=== PATIENT | male | born 1970 | race Hispanic/Latino ===

== ENCOUNTER → 2023-05-23 | Outpatient (CLI) | payer MEDICAID, OTHER ==
[~2023-05-23] MED LIST: IOHEXOL 350 MG/ML 100ML INFUS..BTL IV ONE; IOHEXOL-350 50ML VIAL IV ONE
== END | disposition home or self-care (01) ==
LOC: RAH 09:17
PROVIDERS: ATTEND Student in an Organized Health Care Education/Training Program
DX: I73.9 Peripheral vascular disease, unspecified (principal); I70.90 Unspecified atherosclerosis
CPT/HCPCS: 75635; Q9967 ×2

== ENCOUNTER 2023-12-17 06:53 | Day surgery (SDC) | payer OTHER, MEDICAID ==
[2023-12-17] VITALS (14 sets, daily range): BP systolic 89–132; BP diastolic 53–74; PULSE 80–94; RESP 14–24
[~2023-12-17] VITALS: Ht 172.7 cm; Wt 67.1 kg
[~2023-12-17 06:53] MED LIST changes: +ASCO500T20 PO; +CARB15DR2 OS; +CYAN500L3 SL; +DIVA125T2 PO; +HYDR-3422 PO; -IOHEXOL 350 MG/ML 100ML INFUS..BTL IV ONE; -IOHEXOL-350 50ML VIAL IV ONE; +LORA0.5T83 PO; +MELA5TAB20 PO; +MULT-1203 PO; +ONDA22I IM; +SERT25TA PO; +THIA100V3 IJ; +TRAZ-185 PO; +ZINC50TA64 PO
[2023-12-17] MEDS ORDERED: MELA1TAB16 PO (09:28)
[2023-12-17] MEDS ORDERED: ONDA-104 PO (09:29)
[2023-12-17] MEDS: 0.9%NACL 1000ML 1,000 ML IV ONE (09:50)
[2023-12-17] MEDS ORDERED: PROPOFOL 10 MG/ML 20ML VIAL IV ONE (10:38)
[2023-12-17] MEDS ORDERED: CEFAZOLIN SODIUM 1 GM VIAL ONE (10:42)
[2023-12-17] MEDS: IPRATROPIUM/ALBUTEROL SULFATE 3 ML SOLUTION IH ONE (11:29)
[2023-12-17] MEDS ORDERED: IPRATROPIUM/ALBUTEROL SULFATE 3 ML SOLUTION IH ONE (11:30)
== END 2023-12-17 12:34 ==
LOC: DAH 06:53
PROVIDERS: ATTEND Internal Medicine
DX: R13.10 Dysphagia, unspecified (principal); R62.7 Adult failure to thrive; I10 Essential (primary) hypertension; F41.9 Anxiety disorder, unspecified; F32.A Depression, unspecified; F02.80 Dementia in other diseases classified elsewhere, unspecified severity, without behavioral disturbance, psychotic disturbance, mood disturbance, and anxiety; Z86.73 Personal history of transient ischemic attack (TIA), and cerebral infarction without residual deficits
CPT/HCPCS: 43246; 94640; J0690; J7030; J2704; A4620; A4215 ×2; A4223; A4222; A4221; A4663; A4606; 43235; J3490

== ENCOUNTER 2023-12-18 05:07 | Inpatient (IN) | payer OTHER, MEDICAID ==
[~2023-12-18] VITALS: Ht 172.7 cm; Wt 68.8 kg
[2023-12-18] VITALS (69 sets, daily range): BP systolic 92–150; BP diastolic 51–93; PULSE 46–104; RESP 14–52; O2SAT 96–100
[~2023-12-18 05:07] MED LIST changes: -HYDR-3422 PO; -LORA0.5T83 PO; +MELA1TAB16 PO; -MELA5TAB20 PO; +ONDA-104 PO; -ONDA22I IM; -SERT25TA PO; -THIA100V3 IJ
[2023-12-18 05:41] LABS: ABG BASE EXCESS -2.4 mmol/L (-2.0-3.0); ABG HCO3 22.8 mmol/L (21.0-28.0); ABG OXYGEN SATURATION 94.2 % (95.0-99.0); ABG PCO2 41 mmHg (35-48); ABG PH 7.366 (7.35-7.450); CARBON MONOXIDE 0.3; HHb 5.8; PO2, ARTERIAL BG 77.5 mmHg (83.0-108.0); VENT MODE, BG BIPAP 16,6 (ROOM AIR)
[2023-12-18 05:48] LABS: BASOPHILS # (AUTO) 0.05 K/uL (0.00-0.20); BASOPHILS % (AUTO) 0.3 % (0.0-5.0); IMMATURE GRANULOCYTE ABSOLUTE 0.19 K/uL (0-1); LYMPHOCYTES # (AUTO) 0.9 K/uL (1.0-4.8); LYMPHOCYTES % (AUTO) 4.4 % (21.0-51.0); MEAN CORPUSCULAR HEMOGLOBIN 29.3 pg (27.0-33.0); MEAN CORPUSCULAR HGB CONC 32.8 g/dL (32.0-36.0); MEAN CORPUSCULAR VOLUME 89.5 fL (79-99); MONOCYTES # (AUTO) 0.6 K/uL (0.1-1.0); MONOCYTES % (AUTO) 3.1 % (3.0-13.0); NEUTROPHILS # (AUTO) 17.9 K/uL (1.8-7.7); NEUTROPHILS % (AUTO) 91.2 % (40.0-77.0); PLATELET COUNT (AUTO) 293 K/uL (130-400); RED BLOOD CELL COUNT(AUTO) 4.47 MIL/uL (4.50-6.20); RED CELL DISTRIBUTION WIDTH 13.9 % (11.0-15.5); WHITE BLOOD COUNT (AUTO) 19.6 K/uL (4.8-10.8)
[2023-12-18 06:05] LABS: CREATININE 0.9 mg/dL (0.5-1.3); POTASSIUM 3.8 mmol/L (3.5-5.1)
[2023-12-18 06:10] LABS: ALBUMIN 2.3 g/dL (3.5-5.0); TOTAL PROTEIN, SERUM 7.2 g/dL (6.0-8.3)
[2023-12-18 06:16] LABS: WBC MORPHOLOGY CONSISTENT W/DIFF
[2023-12-18] MEDS ORDERED: PHARMACY COMMUNICATION MISC SCH ×2 (06:30→07:00)
[2023-12-18] MEDS ORDERED: VANCOMYCIN KIT 1 GM/250 ML IV.KIT IV ONE (06:30)
[2023-12-18] MEDS ORDERED: HYDRALAZINE 20MG/ML VIAL IV PRN (07:00)
[2023-12-18] MEDS ORDERED: VANCOMYCIN PROTOCOL PER PHARMACY IV SCH ×2 (07:00→13:00)
[2023-12-18] MEDS ORDERED: ONDANSETRON 4MG INJ IVP PRN (07:00)
[2023-12-18] MEDS ORDERED: ACETAMINOPHEN 325 MG TAB PO PRN (07:00)
[2023-12-18] MEDS ORDERED: LACTULOSE 20 GM/30 ML UDCUP PO PRN (07:00)
[2023-12-18] MEDS ORDERED: DOCUSATE SODIUM 100 MG CAP PO PRN (07:00)
[2023-12-18] MEDS: LACTATED RINGERS 1000ML 2,052 ML IV ONE (07:02)
[2023-12-18] MEDS: CEFTRIAXONE 2GM VIAL IVPB ONE (07:02)
[2023-12-18] MEDS: ACETAMINOPHEN 650 MG SUPPOSITORY RC ONE (07:04)
[2023-12-18] MEDS: VANCOMYCIN 1G/250ML KIT 250 ML IV SCH ×2 (07:04→17:32)
[2023-12-18] MEDS: VANCOMYCIN 1G/250ML KIT 250 ML IV ONE (07:05)
[2023-12-18] MEDS: NOREPINEPHRIN 4MG/NS 250ML 250 ML IV ONE (07:05)
[2023-12-18] MEDS: KETAMINE 50MG/ML SYRINGE 50 MG/ML DISP.SYRIN IV ONE (07:05)
[2023-12-18] MEDS: PROPOFOL 1000 MG/100 ML 100 ML IV ONE (07:05)
[2023-12-18] MEDS: ROCURONIUM BROMIDE 10MG/1ML 5ML VL ONE (07:06)
[2023-12-18] MEDS: KETAMINE 50MG/ML SYRINGE 50 MG/ML DISP.SYRIN ONE ×2 (07:06→07:07)
[2023-12-18] MEDS: SOLU-MEDROL 125MG VIAL IVP ONE (07:09)
[2023-12-18] MEDS: CEFEPIME HCL 2 GM VIAL IVPB SCH (07:09)
[2023-12-18] MEDS: NOREPINEPHRIN 4MG/NS 250ML 250 ML IV SCH (07:10)
[2023-12-18 07:19] LABS: ABG HCO3 20.4 mmol/L (21.0-28.0); ABG OXYGEN SATURATION 97.7 % (95.0-99.0); ABG PCO2 32 mmHg (35-48); ABG PH 7.423 (7.35-7.450); PO2, ARTERIAL BG 100.1 mmHg (83.0-108.0); VENT MODE, BG AC (ROOM AIR)
[2023-12-18] MEDS: INSULIN HUMULIN R 100 UNIT/ML 3ML SQ SCH (07:30)
[2023-12-18 08:08] LABS: RAPID GROUP A STREP negative (NEGATIVE)
[2023-12-18 08:12] LABS: APPEARANCE,URINE CLEAR (CLEAR); BILIRUBIN,URINE NEGATIVE (NEGATIVE); COLOR,URINE YELLOW (YELLOW); GLUCOSE, URINE (UA) NEGATIVE (NEGATIVE); KETONES,URINE NEGATIVE (NEGATIVE); LEUKOCYTE ESTERASE ,URINE NEGATIVE Leu/uL (NEGATIVE); NITRATE,URINE NEGATIVE (NEGATIVE); OCCULT BLOOD,URINE SMALL (NEGATIVE); PROTEIN,URINE 10 mg/dL (NEGATIVE); SARS-CoV-2, RNA, NAAT NEGATIVE SARS CoV-2 (NEGATIVE); UROBILINOGEN,URINE 3 mg/dL (0.2-1.0)
[2023-12-18 08:16] LABS: ADD UA MICROSCOPIC YES
[2023-12-18 08:19] LABS: INFLUENZA TYPE A Negative For Type A (NEGATIVE); INFLUENZA TYPE B Negative For Type B (NEGATIVE)
[2023-12-18 08:20] LABS: BACTERIA,URINE RARE /HPF (None Seen); MUCUS,URINE RARE LPF (None Seen)
[2023-12-18] MEDS: ENOXAPARIN SODIUM 40 MG/0.4 ML SYRINGE SQ SCH (09:26)
[2023-12-18] MEDS: PROPOFOL 1000 MG/100 ML IV PRN (09:36)
[2023-12-18] MEDS: ALBUTEROL 0.083% 2.5 MG/3 ML INH IH SCH (11:21)
[2023-12-18] MEDS: ALBUTEROL 0.083% 2.5 MG/3 ML INH IH ONE (11:21)
[2023-12-18] MEDS: IPRATROPIUM 0.5 MG/2.5 ML INH IH SCH (11:21)
[2023-12-18] MEDS: IPRATROPIUM 0.5 MG/2.5 ML INH IH ONE (11:21)
[2023-12-18] MEDS: SOLU-MEDROL 40MG VIAL IVP SCH (13:03)
[2023-12-18] MEDS: METRONIDAZOLE 500MG/100ML BAG 100 ML IVPB SCH (13:03)
[2023-12-18] MEDS: HONEY 1 APPL/ML TUBE TP SCH (14:39)
[2023-12-19] VITALS (95 sets, daily range): BP systolic 89–154; BP diastolic 39–92; PULSE 47–95; RESP 18–53; O2SAT 95–100
[2023-12-19 04:21] LABS: BASOPHILS # (AUTO) 0.06 K/uL (0.00-0.20); BASOPHILS % (AUTO) 0.3 % (0.0-5.0); LYMPHOCYTES # (AUTO) 0.6 K/uL (1.0-4.8); LYMPHOCYTES % (AUTO) 2.8 % (21.0-51.0); MEAN CORPUSCULAR HEMOGLOBIN 28.7 pg (27.0-33.0); MEAN CORPUSCULAR HGB CONC 33.2 g/dL (32.0-36.0); MEAN CORPUSCULAR VOLUME 86.4 fL (79-99); MONOCYTES # (AUTO) 0.5 K/uL (0.1-1.0); MONOCYTES % (AUTO) 2.2 % (3.0-13.0); NEUTROPHILS # (AUTO) 21.1 K/uL (1.8-7.7); NEUTROPHILS % (AUTO) 93.8 % (40.0-77.0); PLATELET COUNT (AUTO) 277 K/uL (130-400); RED BLOOD CELL COUNT(AUTO) 4.28 MIL/uL (4.50-6.20); RED CELL DISTRIBUTION WIDTH 13.7 % (11.0-15.5); WHITE BLOOD COUNT (AUTO) 22.5 K/uL (4.8-10.8)
[2023-12-19 04:32] LABS: CREATININE 0.8 mg/dL (0.5-1.3); MAGNESIUM 1.8 mg/dL (1.80-2.40); PHOSPHORUS 3.5 mg/dL (2.5-4.9); POTASSIUM 3.7 mmol/L (3.5-5.1)
[2023-12-19 09:10] LABS: ABG BASE EXCESS -1.1 mmol/L (-2.0-3.0); ABG HCO3 21.3 mmol/L (21.0-28.0); ABG PCO2 30 mmHg (35-48); ABG PH 7.472 (7.35-7.450); DEVICE COMMENT RR, EDDIE,RN; PO2, ARTERIAL BG 142.6 mmHg (83.0-108.0); VENT MODE, BG AC (ROOM AIR)
[2023-12-19 09:51] LABS: INR 1.2 (0.85-1.15)
[2023-12-19 09:52] LABS: PARTIAL THROMBOPLASTIN TIME 36.4 SEC (26.3-35.5)
[2023-12-19] MEDS: CHLORHEXIDINE GLUCONATE 15 ML MOUTHWASH MM SCH (11:26)
[2023-12-19] MEDS ORDERED: NOREPINEPHRIN 4MG/NS 250ML 250 ML IV SCH (12:00)
[2023-12-19] MEDS ORDERED: PROPOFOL 1000 MG/100 ML IV PRN (13:30)
[2023-12-19] MEDS: PROPOFOL 1000 MG/100 ML 100 ML IV SCH (13:37)
[2023-12-19] MEDS ORDERED: PHARMACY COMMUNICATION MISC ONE (15:30)
[2023-12-19] MEDS: ARTIFICAL TEARS SOL 15 ML OU SCH (16:45)
[2023-12-19] MEDS: SOLU-MEDROL 40MG VIAL IVP SCH (18:09)
[2023-12-19] MEDS: DIVALPROEX SODIUM 125 MG PO SCH (20:19)
[2023-12-19] MEDS: Carboxymethylcellulos/Glycerin (Refresh Optive Eye Drops) OS SCH (20:19)
[2023-12-20] VITALS (55 sets, daily range): BP systolic 103–148; BP diastolic 39–111; PULSE 49–86; RESP 17–56; O2SAT 97–100
[2023-12-20] MEDS ORDERED: PHYTONADIONE 10 MG in 0.9%NACL 50ML 50 ML IVPB SCH (01:30)
[2023-12-20 04:38] LABS: BASOPHILS # (AUTO) 0.01 K/uL (0.00-0.20); BASOPHILS % (AUTO) 0.1 % (0.0-5.0); HEMATOCRIT 30.8 % (42-54); IMMATURE GRANULOCYTE ABSOLUTE 0.11 K/uL (0-1); LYMPHOCYTES # (AUTO) 0.6 K/uL (1.0-4.8); LYMPHOCYTES % (AUTO) 3.7 % (21.0-51.0); MEAN CORPUSCULAR HEMOGLOBIN 28.7 pg (27.0-33.0); MEAN CORPUSCULAR HGB CONC 33.1 g/dL (32.0-36.0); MEAN CORPUSCULAR VOLUME 86.8 fL (79-99); MONOCYTES # (AUTO) 0.5 K/uL (0.1-1.0); MONOCYTES % (AUTO) 2.8 % (3.0-13.0); NEUTROPHILS # (AUTO) 15.8 K/uL (1.8-7.7); NEUTROPHILS % (AUTO) 92.8 % (40.0-77.0); PLATELET COUNT (AUTO) 257 K/uL (130-400); RED BLOOD CELL COUNT(AUTO) 3.55 MIL/uL (4.50-6.20); RED CELL DISTRIBUTION WIDTH 13.7 % (11.0-15.5)
[2023-12-20 04:53] LABS: ALBUMIN 1.7 g/dL (3.5-5.0); BILIRUBIN,TOTAL 0.4 mg/dL (0.2-1.0); CREATININE 0.6 mg/dL (0.5-1.3); POTASSIUM 3.2 mmol/L (3.5-5.1); TOTAL PROTEIN, SERUM 5.8 g/dL (6.0-8.3)
[2023-12-20 04:54] LABS: ABG BASE EXCESS 0.9 mmol/L (-2.0-3.0); ABG HCO3 23.3 mmol/L (21.0-28.0); ABG OXYGEN SATURATION 91.8 % (95.0-99.0); ABG PCO2 30 mmHg (35-48); CARBON MONOXIDE 0.3; HHb 8.1; PO2, ARTERIAL BG 60.8 mmHg (83.0-108.0); VENT MODE, BG AC (ROOM AIR)
[2023-12-20] MEDS ORDERED: KCL 20 MEQ ERTAB PO PRN (06:00)
[2023-12-20] MEDS ORDERED: MAGNESIUM 2GM PREMIX 50ML 50 ML IV PRN (06:00)
[2023-12-20] MEDS: POTASSIUM CHLORIDE 10MEQ/100ML 100 ML IV PRN (06:15)
[2023-12-20] MEDS: POTASSIUM CHLORIDE 10% ELIXIR 20 MEQ/15 ML UDCUP PO PRN (06:15)
[2023-12-20] MEDS: MULTIVITAMIN TABLET PO SCH (08:02)
[2023-12-20] MEDS: CYANOCOBALAMIN (VITAMIN B-12) 1,000 MCG TABLET PO SCH (08:02)
[2023-12-20] MEDS: DEXMEDETOMIDINE 400MCG/NS100ML IV SCH (10:25)
[2023-12-20] MEDS: FAMOTIDINE 20MG VIAL IV SCH (10:30)
[2023-12-21] VITALS (58 sets, daily range): BP systolic 102–151; BP diastolic 48–86; PULSE 43–79; RESP 18–79; O2SAT 97–100
[2023-12-21 04:01] LABS: HEMATOCRIT 31.1 % (42-54); IMMATURE GRANULOCYTE ABSOLUTE 0.09 K/uL (0-1); LYMPHOCYTES # (AUTO) 0.7 K/uL (1.0-4.8); LYMPHOCYTES % (AUTO) 4.5 % (21.0-51.0); MEAN CORPUSCULAR HGB CONC 33.1 g/dL (32.0-36.0); MEAN CORPUSCULAR VOLUME 87.6 fL (79-99); MONOCYTES # (AUTO) 0.5 K/uL (0.1-1.0); MONOCYTES % (AUTO) 3.2 % (3.0-13.0); NEUTROPHILS # (AUTO) 13.2 K/uL (1.8-7.7); NEUTROPHILS % (AUTO) 91.7 % (40.0-77.0); PLATELET COUNT (AUTO) 257 K/uL (130-400); RED BLOOD CELL COUNT(AUTO) 3.55 MIL/uL (4.50-6.20); RED CELL DISTRIBUTION WIDTH 14.2 % (11.0-15.5); WHITE BLOOD COUNT (AUTO) 14.4 K/uL (4.8-10.8)
[2023-12-21 04:06] LABS: CREATININE 0.7 mg/dL (0.5-1.3); MAGNESIUM 2.2 mg/dL (1.80-2.40)
[2023-12-21 08:11] LABS: INR 1.03 (0.85-1.15); PROTHROMBIN TIME 12.1 SEC (9.6-11.6)
[2023-12-21 08:13] LABS: PARTIAL THROMBOPLASTIN TIME 25.9 SEC (26.3-35.5)
[2023-12-21 12:53] LABS: HEMOGLOBIN A1C 5.2 % (4.0-6.0)
[2023-12-22] VITALS (55 sets, daily range): BP systolic 101–142; BP diastolic 43–79; PULSE 46–89; RESP 16–44; O2SAT 91–100
[2023-12-22 05:32] LABS: BASOPHILS # (AUTO) 0.01 K/uL (0.00-0.20); BASOPHILS % (AUTO) 0.1 % (0.0-5.0); EOSINOPHILS # (AUTO) 0.01 K/uL (0.00-0.70); EOSINOPHILS % (AUTO) 0.1 % (0.0-8.0); IMMATURE GRANULOCYTE ABSOLUTE 0.06 K/uL (0-1); LYMPHOCYTES # (AUTO) 1.3 K/uL (1.0-4.8); LYMPHOCYTES % (AUTO) 11.6 % (21.0-51.0); MEAN CORPUSCULAR HEMOGLOBIN 29.1 pg (27.0-33.0); MEAN CORPUSCULAR HGB CONC 32.6 g/dL (32.0-36.0); MEAN CORPUSCULAR VOLUME 89.3 fL (79-99); MONOCYTES # (AUTO) 0.4 K/uL (0.1-1.0); MONOCYTES % (AUTO) 3.6 % (3.0-13.0); NEUTROPHILS # (AUTO) 9.3 K/uL (1.8-7.7); NEUTROPHILS % (AUTO) 84.1 % (40.0-77.0); PLATELET COUNT (AUTO) 235 K/uL (130-400); RED BLOOD CELL COUNT(AUTO) 3.47 MIL/uL (4.50-6.20); RED CELL DISTRIBUTION WIDTH 14.2 % (11.0-15.5); WHITE BLOOD COUNT (AUTO) 11.1 K/uL (4.8-10.8)
[2023-12-22 05:52] LABS: CREATININE 0.6 mg/dL (0.5-1.3); POTASSIUM 3.6 mmol/L (3.5-5.1)
[2023-12-23] VITALS (53 sets, daily range): BP systolic 98–130; BP diastolic 52–74; PULSE 45–78; RESP 14–138; O2SAT 97–100
[2023-12-23 04:15] LABS: BASOPHILS # (AUTO) 0.01 K/uL (0.00-0.20); BASOPHILS % (AUTO) 0.1 % (0.0-5.0); EOSINOPHILS # (AUTO) 0.03 K/uL (0.00-0.70); EOSINOPHILS % (AUTO) 0.2 % (0.0-8.0); HEMATOCRIT 31.8 % (42-54); IMMATURE GRANULOCYTE ABSOLUTE 0.15 K/uL (0-1); LYMPHOCYTES # (AUTO) 1.6 K/uL (1.0-4.8); LYMPHOCYTES % (AUTO) 13.3 % (21.0-51.0); MEAN CORPUSCULAR HGB CONC 32.4 g/dL (32.0-36.0); MEAN CORPUSCULAR VOLUME 89.6 fL (79-99); MONOCYTES # (AUTO) 0.6 K/uL (0.1-1.0); MONOCYTES % (AUTO) 4.7 % (3.0-13.0); NEUTROPHILS # (AUTO) 9.7 K/uL (1.8-7.7); NEUTROPHILS % (AUTO) 80.5 % (40.0-77.0); PLATELET COUNT (AUTO) 246 K/uL (130-400); RED BLOOD CELL COUNT(AUTO) 3.55 MIL/uL (4.50-6.20); RED CELL DISTRIBUTION WIDTH 14.1 % (11.0-15.5)
[2023-12-23 04:34] LABS: ALBUMIN 1.8 g/dL (3.5-5.0); BILIRUBIN,TOTAL 0.5 mg/dL (0.2-1.0); CREATININE 0.6 mg/dL (0.5-1.3); POTASSIUM 3.7 mmol/L (3.5-5.1)
[2023-12-23] MEDS ORDERED: ONDANSETRON 4MG INJ IVP PRN (10:30)
[2023-12-24] VITALS (42 sets, daily range): BP systolic 82–114; BP diastolic 43–83; PULSE 53–101; RESP 15–101; O2SAT 96–99
[2023-12-24] MEDS: GLYCOPYRROLATE 0.2 MG/ML 5 ML VIAL IVP PRN (12:05)
[2023-12-24] MEDS: LORAZEPAM 2 MG/ML 1 ML VIAL IVP PRN (15:00)
[2023-12-24] MEDS: MORPHINE 4 MG SYG IVP PRN (15:00)
[2023-12-24] MEDS: SCOPOLAMINE HYDROBROMIDE 1 EACH ADH..PATCH TD SCH (16:07)
[2023-12-24] MEDS: ARTIFICAL TEARS SOL 15 ML OU PRN (19:48)
[2023-12-25] VITALS (13 sets, daily range): BP systolic 83–100; BP diastolic 44–53; PULSE 103–118; RESP 17–38; TEMP 103; O2SAT 99–100
[2023-12-25] MEDS: ACETAMINOPHEN 650 MG SUPPOSITORY RC PRN (05:45)
[2023-12-25] MEDS: GLYCOPYRROLATE 0.2 MG/ML 5 ML VIAL IVP PRN (06:31)
[2023-12-25] MEDS ORDERED: SCOPOLAMINE HYDROBROMIDE 1 EACH ADH..PATCH TD SCH (09:30)
[2023-12-25] MEDS ORDERED: ACETAMINOPHEN 325 MG SUPPOSITORY RC PRN (09:30)
[2023-12-27] MEDS ORDERED: SCOPOLAMINE HYDROBROMIDE 1 EACH ADH..PATCH TD SCH (16:00)
== END 2023-12-25 11:59 | disposition hospice, inpatient (51) | DRG 870 ==
LOC: EDH 05:07 → EDHIP 06:18 → 2BH 07:40
PROVIDERS: ADMIT Internal Medicine; ATTEND Internal Medicine
PROC: 5A09357 Assistance with Respiratory Ventilation, Less than 24 Consecutive Hours, Continuous Positive Airway Pressure (ICD-10-PCS; principal; 2023-12-18)
PROC: 5A1955Z Respiratory Ventilation, Greater than 96 Consecutive Hours (ICD-10-PCS; 2023-12-18)
PROC: 0BH17EZ Insertion of Endotracheal Airway into Trachea, Via Natural or Artificial Opening (ICD-10-PCS; 2023-12-18)
PROC: 5A09357 Assistance with Respiratory Ventilation, Less than 24 Consecutive Hours, Continuous Positive Airway Pressure (ICD-10-PCS; 2023-12-22)
PROC: 5A1935Z Respiratory Ventilation, Less than 24 Consecutive Hours (ICD-10-PCS; 2023-12-22)
PROC: 5A09357 Assistance with Respiratory Ventilation, Less than 24 Consecutive Hours, Continuous Positive Airway Pressure (ICD-10-PCS; 2023-12-23)
PROC: 5A1945Z Respiratory Ventilation, 24-96 Consecutive Hours (ICD-10-PCS; 2023-12-23)
DX: A41.9 Sepsis, unspecified organism (principal); L89.153 Pressure ulcer of sacral region, stage 3; J18.9 Pneumonia, unspecified organism; J96.01 Acute respiratory failure with hypoxia; R65.21 Severe sepsis with septic shock; F10.27 Alcohol dependence with alcohol-induced persisting dementia; L03.115 Cellulitis of right lower limb; Z20.822 Contact with and (suspected) exposure to COVID-19; E86.9 Volume depletion, unspecified; F10.21 Alcohol dependence, in remission; F32.9 Major depressive disorder, single episode, unspecified; I10 Essential (primary) hypertension; L89.890 Pressure ulcer of other site, unstageable; R13.10 Dysphagia, unspecified; R47.02 Dysphasia; R62.7 Adult failure to thrive; Y95 Nosocomial condition; Z66 Do not resuscitate; Z74.01 Bed confinement status; Z91.018 Allergy to other foods; Z79.899 Other long term (current) drug therapy
CPT/HCPCS: 31500; 36415; 36600; 71045; 80048; 80053; 80202; 81001; 82306; 82435; 82550; 82803; 82947; 82948; 83036; 83605; 83735; 83930; 83935; 84100; 84132; 84207; 84295; 84300; 84484; 85018; 85025; 85610; 85730; 87040; 87071; 87077; 87088; 87186; 87205; 87635; 87641; 87804; 87880; 93005; 93306; 93970; 94002; 94003; 94640; 94660; 94664; 96375; 99291; G0378; J0692; J0696; J1650; J1815; J2060; J2270; J2704; J2919; J2920; J3370; J3480; J3490; A6213; A6214

== ENCOUNTER 2023-12-25 12:00 | Inpatient (IN) | payer OTHER ==
[2023-12-25] MEDS ORDERED: GLYCOPYRROLATE 0.2 MG/ML 5 ML VIAL IVP PRN (13:30)
[2023-12-25] MEDS ORDERED: BISACODYL 10 MG SUPP.RECT RC PRN (13:30)
[2023-12-25] MEDS ORDERED: MORPHINE 10 MG SYG IVP PRN (13:30)
[2023-12-25] MEDS ORDERED: ONDANSETRON 4MG INJ IVP PRN (13:30)
[2023-12-25] MEDS: MORPHINE 4 MG SYG IVP PRN (14:07)
[2023-12-25 15:30] VITALS: BP 99/51; PULSE 102; RESP 33; O2SAT 92
[2023-12-25 16:00] VITALS: BP 97/48; PULSE 101; RESP 30
[2023-12-25 16:45] VITALS: BP 84/52; PULSE 120; RESP 20
[2023-12-25] MEDS: MORPHINE 4 MG SYG IVP SCH (18:07)
[2023-12-25 20:00] VITALS: BP 85/45; PULSE 105; RESP 19
[2023-12-25] MEDS: ACETAMINOPHEN 650 MG SUPPOSITORY RC PRN (20:40)
[2023-12-25 21:00] VITALS: O2SAT 92
[2023-12-25] MEDS ORDERED: SODIUM CHLORIDE IV SCH (22:00)
[2023-12-25] MEDS ORDERED: MORPHINE IV SCH (22:00)
[2023-12-25] MEDS: PHARMACY COMMUNICATION MISC SCH (22:58)
[2023-12-26 08:00] VITALS: BP 83/47; PULSE 111; RESP 20; O2SAT 94
[2023-12-26] MEDS: GLYCOPYRROLATE 0.2 MG/ML 5 ML VIAL IVP SCH (09:32)
[2023-12-26 12:00] VITALS: BP 91/46; PULSE 101; RESP 21
[2023-12-26 16:00] VITALS: BP 80/42; PULSE 105; RESP 20
[2023-12-26] MEDS: LORAZEPAM 2 MG/ML 1 ML VIAL IVP PRN (16:29)
[2023-12-26] MEDS: SODIUM CHLORIDE IV SCH (17:15)
[2023-12-26] MEDS: MORPHINE IV SCH (17:15)
[2023-12-26 19:00] VITALS: BP 89/56; PULSE 126; RESP 24
[2023-12-26 20:00] VITALS: O2SAT 87
[2023-12-27 07:46] VITALS: BP 80/59; PULSE 149; RESP 15
[2023-12-27 08:00] VITALS: O2SAT 86
[2023-12-27 11:44] VITALS: TEMP 101.8
[2023-12-27] MEDS: LORAZEPAM 2 MG/ML 1 ML VIAL IVP SCH (12:29)
[2023-12-27] MEDS: SCOPOLAMINE HYDROBROMIDE 1 EACH ADH..PATCH TD SCH (14:38)
[2023-12-27 20:00] VITALS: BP 78/47; PULSE 60; RESP 16; O2SAT 92
[2023-12-28 07:55] VITALS: BP 88/49; PULSE 120; RESP 19
[2023-12-28 07:59] VITALS: BP 88/49; PULSE 120; RESP 19
[2023-12-28 08:00] VITALS: O2SAT 81
== END 2023-12-28 18:59 | DRG 951 ==
LOC: 2BH 12:00 → 3DH 16:37
PROVIDERS: ADMIT Internal Medicine; ATTEND Internal Medicine
DX: Z51.5 Encounter for palliative care (principal); A41.9 Sepsis, unspecified organism; J18.9 Pneumonia, unspecified organism; R65.21 Severe sepsis with septic shock; L03.115 Cellulitis of right lower limb; F10.27 Alcohol dependence with alcohol-induced persisting dementia; F32.9 Major depressive disorder, single episode, unspecified; R13.10 Dysphagia, unspecified; R62.7 Adult failure to thrive; Z66 Do not resuscitate; Z74.01 Bed confinement status
CPT/HCPCS: G0378; J2060; J2270; J3490